=== PATIENT | female | born 1935 | race Caucasian/White ===

== ENCOUNTER 2023-05-13 10:51 | Emergency (ER) | payer OTHER, SELFPAY ==
[2023-05-13 10:53] VITALS: BP 129/68
[2023-05-13 12:10] VITALS: BMI 23.9
--- NOTE | 2023-05-13 14:20 | ED.GENMED ---
History of Present Illness
General
Chief Complaint: Fall
Source: patient
Exam Limitations: none
Time Seen by Provider: 05/13/23 11:22
Nursing documentation reviewed up to this point in time: agreed with
Travel History
Have you had any contact with someone who has COVID-19?: No
Do you have any symptoms of coronavirus? Fever > 100 degrees, chills, cough, shortness of breath, sore throat, loss of taste or smell, muscle aches, or headache?: No
History of Present Illness
History of Present Illness:
87-year-old female with past medical history of dementia, asthma, A-fib currently on Eliquis, CAD presenting to the emergency department today with concerns of a fall last night mainly hitting her right hip able to walk at the time but today noticed
discomfort when trying to ambulate. Denies hitting her head denies loss of consciousness denies additional concerns otherwise. No numbness or weakness.
Past History
Past History
ED Past Medical History: Arrthythmia (Paroxysmal atrial fibrillation), CAD, HTN, Hypothyroidism and Other (Asthma, hyperlipidemia, osteoarthritis, osteoporosis, hypothyroidism, dementia, pacemaker for sick sinus syndrome)
ED Past Surgical History: Orthopedic (Bilateral total knee replacement 4 days ago.)
Patient has exhibited threatening behavior?: No
PSI?: No
Social History
Tobacco: Non-smoker
Alcohol: None
Drug: None
Living: skilled nursing
Employment: Retired
Family History
Family History: Other (Noncontributory)
Review of Systems
Review of Systems
Allergies reviewed?: Yes
All Other Systems: ROS reviewed and negative except as documented in HPI and ROS
Phy Exam
Physical Exam
Physical Exam:
GENERAL: Alert , in no apparent distress
EYE: pupils equal and reactive
NECK: Supple, no significant adenopathy.
ENT: o/p clr, mmm.
CARDIAC: Regular rate and rhythm .
LUNGS: Clear breath sounds bilaterally, no acute respiratory distress, no wheezes/rales/rhonchi
ABDOMEN: Soft, without focal tenderness, no r/g, no cvat
NEUROLOGICAL: Alert and oriented, no focal neuro deficits
SKIN: Warm and dry, skin intact.
MUSCULOSKELETAL: No edema, well perfused.
PSYCH: Normal and appropriate interaction.
Course
Orders/Labs/Results
Orders:
Orders
05/13/23 11:47
CT Head W/o Iv Contrast Urgent
Comment:
Reason For Exam: fall on thinner
Hip, Right 2-3 Views [CR Hip - RT w/wo Pel 2-3 Vw*] Urgent
Comment:
Reason For Exam: right hip ppain and groin pain after fall
Include a pelvis x-ray?: Yes
05/13/23 12:42
CT Pelvis W/o Iv Contrast Urgent
Comment:
Reason For Exam: hip/groin pain after fall trouble walking
05/13/23 14:40
Case Management Consult ONCE
Case Management Consult: Discharge Planning
Pt Eval And Treat Urgent
Activity Level: Ambulate
Vital Signs
Initial and Last Documented VS:
Initial Vital Signs
Temp Pulse Resp BP Pulse Ox
98.4 F 64 16 129/68 98
05/13/23 10:53 05/13/23 10:53 05/13/23 10:53 05/13/23 10:53 05/13/23 10:53
Last Documented Vital Signs
Temp Pulse Resp BP Pulse Ox
98.4 F 64 16 129/68 98
05/13/23 10:53 05/13/23 10:53 05/13/23 10:53 05/13/23 10:53 05/13/23 10:53
MDM/Problems Addressed
MDM/Problems Addressed:
87-year-old female presenting to the emergency department today with concerns of mainly right-sided groin discomfort after a fall yesterday. Denies hitting her head is on Eliquis. CT scan of the head was obtained due to the patient's history of
taking Eliquis and poor memory. CT scan was negative. CT scan of the hip was also obtained that did not show any emergent fracture. On reassessment patient able to stand up and walk to the bathroom on her own power. The daughter is concerned
that she does live by herself and believes this would be unsafe requesting case management for appropriate home care.
*Critical Care Note
Total Time (30-74mins, 75-104mins- exclusive of procedures): Not Applicable
ED Attending Note
-
Portions of this chart may have been created with voice recognition software.� Occasional wrong word or��sound alike� substitutions may have occurred due to the inherent limitations of voice recognition software.
Discharge Plan
Departure
Patient Disposition: Home (Routine Discharge)
Date of Disposition: 05/13/23
Time of Disposition: 15:35
Patient with high blood pressure during this ER visit?: No
Condition: Good
Covid-19: Not Applicable
Discharge Problem:
Fall, Muscle strain
Instructions: Preventing falls in adults
Prescriptions:
No Action
atorvastatin 20 MG tablet
20 mg PO QPM
levothyroxine 50 MCG tablet
50 mcg PO DAILY
metoprolol succinate 25 MG tablet extended release 24 hr
12.5 mg PO DAILY
albuterol sulfate 1 PUFF HFA aerosol inhaler
2 puff inhalation R Q4HPRN PRN (Reason: sob)
Eliquis 5 MG tablet
5 mg PO BID Qty: 60 5RF
donepezil [Aricept] 5 mg Tablet
5 mg PO HS
loratadine [Claritin] 10 mg Tablet
10 mg PO DAILY
Flovent
2 puff inhalation BID
Referrals:
NONE,* [Family Provider] -
Activity Restrictions/Additional Instructions:
You came to the emergency department today after a fall. Here you had a reassuring imaging. You likely have soft tissue injury. This will improve over the next few days. Return to the emergency department any worsening, new or concerning
symptoms.
Interventions
Interventions:
*Risk Screen - Suicide Last Done: 05/13/23 12:10
*General Assessment Last Done: 05/13/23 12:10
*Neglect/Abuse Screening Last Done: 05/13/23 12:10
*ED COVID-19 Vaccine History Last Done: 05/13/23 10:53
ED-Musculoskeletal Assessment Last Done: 05/13/23 12:10
ED- Neurological Assessment Last Done: 05/13/23 12:10
ED-Skin Assessment Last Done: 05/13/23 12:10
--- NOTE | 2023-05-13 15:04 | CM ---
CM reviewed medical records. CM met with patient and daughter in room. Daughter stated that she feels that she would like patient to return home. Daughter confirmed that she will have 24 hour supervision at home. Patient has [employer] assistance twice a
week for 4 hours. Patient lives in an in law suite with daughter.
Daughter is requesting [facility]. Referral sent via [facility].
== END 2023-05-13 16:02 | disposition home or self-care (01) ==
LOC: EMR 10:51
PROVIDERS: EMERGENCY PHYSICIAN Emergency Medicine
DX: S76.011A Strain of muscle, fascia and tendon of right hip, initial encounter (principal); R10.30 Lower abdominal pain, unspecified; W18.30XA Fall on same level, unspecified, initial encounter; I48.0 Paroxysmal atrial fibrillation; I10 Essential (primary) hypertension; F03.90 Unspecified dementia, unspecified severity, without behavioral disturbance, psychotic disturbance, mood disturbance, and anxiety; I25.10 Atherosclerotic heart disease of native coronary artery without angina pectoris; E03.9 Hypothyroidism, unspecified; J45.909 Unspecified asthma, uncomplicated; E78.5 Hyperlipidemia, unspecified; M19.90 Unspecified osteoarthritis, unspecified site; F41.9 Anxiety disorder, unspecified; M81.0 Age-related osteoporosis without current pathological fracture; I49.5 Sick sinus syndrome; I25.2 Old myocardial infarction; Z79.01 Long term (current) use of anticoagulants; Z98.890 Other specified postprocedural states; Z96.653 Presence of artificial knee joint, bilateral; Z95.0 Presence of cardiac pacemaker; Z85.828 Personal history of other malignant neoplasm of skin; Z87.891 Personal history of nicotine dependence
CPT/HCPCS: 99284; 70450; 72192; 73502

== ENCOUNTER → 2024-10-06 14:17 | Outpatient (REF) | payer OTHER, SELFPAY | LOC: RAD 14:17 | PROVIDERS: ATTENDING PHYSICIAN Nurse Practitioner | DX: M25.512 Pain in left shoulder (principal) | CPT/HCPCS: 73030 ==

== ENCOUNTER 2025-02-18 17:05 | Emergency (ER) | payer OTHER, SELFPAY ==
[2025-02-18 17:08] VITALS: BP 167/80
[2025-02-18 17:55] LABS: Hematocrit 43.7 % (37.0-47.0); Hemoglobin 14.5 g/dL (12.0-16.0); Mean Corp Hgb Conc. 33.2 g/dL (33.0-37.0); Mean Corpuscular Volume 96.7 fL (81.0-99.0); Nucleated Red Blood Cells % 0 %; Platelet Count 181 10^3/uL (130-400); Red Cell Dist. Width 13.2 % (11.5-14.5)
[2025-02-18 18:14] LABS: ALT (SGPT) 20 U/L (0-35); AST (SGOT) 30 U/L (14-36); Albumin 4.3 g/dl (3.5-5.0); Alkaline Phosphatase 78 U/L (38-126); Blood Urea Nitrogen 16 mg/dl (7-17); Calcium 9.3 mg/dl (8.4-10.2); Carbon Dioxide 27 mmol/L (22-30); Chloride 104 mmol/L (98-107); Glucose 96 mg/dl (70-99); Potassium 4.2 mmol/L (3.5-5.1); Sodium 136 mmol/L (135-145); Total Protein 7.4 g/dl (6.3-8.2); eGFR > 60.00
[2025-02-18 18:16] LABS: Troponin I < 0.012 ng/ml
[2025-02-18 21:07] VITALS: BMI 25.8
[2025-02-18 21:10] VITALS: BP 103/62
[2025-02-18 22:00] VITALS: BP 112/62
[2025-02-18] MEDS: TYLENOL 650 MG PO (22:20)
[2025-02-18 22:28] LABS: Troponin I < 0.012 ng/ml
--- NOTE | 2025-02-18 22:39 | ED.GENMED ---
History of Present Illness
General
Chief Complaint: Fall
Source: patient and family
Exam Limitations: dementia
Time Seen by Provider: 02/18/25 21:12
Nursing documentation reviewed up to this point in time: agreed with
History of Present Illness
History of Present Illness:
Patient is an 89-year-old female with history atrial fibrillation on Eliquis, CAD, with pacemaker who presents to the emergency department via EMS after unwitnessed fall. Patient unable to contribute much to history of fall given dementia however
currently only reports mild pain in her right chest however denies any headache, neck pain, back pain, pain in upper or lower extremities. She unfortunately is a history of vascular dementia and does not remember the event surrounding the fall.
Patient's daughter states that patient lives in an in-law suite on their property with multiple ring cameras. Her daughter states that when she got home from work around 430 her mom was found on the ground in front of her door, inside. Based on
ring camera footage, the fall had just occurred and patient was not down on the floor for much time at all. They do not believe the patient ever lost consciousness. The patient had contacted life alert who then called 911 by the time patient's
daughter came inside.
Patient apparently was able to walk independently from the in-law suite out to the ambulance stretcher without discomfort.
Patient is anticoagulated on Eliquis for atrial fibrillation.
Past History
Past History
ED Past Medical History: Arrthythmia (Paroxysmal atrial fibrillation), CAD, HTN, Hypothyroidism and Other (Asthma, hyperlipidemia, osteoarthritis, osteoporosis, hypothyroidism, dementia, pacemaker for sick sinus syndrome)
ED Past Surgical History: Orthopedic (Bilateral total knee replacement 4 days ago.)
Patient has exhibited threatening behavior?: No
PSI?: No
Social History
Tobacco: Non-smoker
Alcohol: None
Drug: None
Living: intermediate
Employment: Retired
Family History
Family History: Other (Noncontributory)
Review of Systems
Review of Systems
Allergies reviewed?: Yes
All Other Systems: ROS reviewed and negative except as documented in HPI and ROS
Phy Exam
Physical Exam
Physical Exam:
Vitals: Patient's vital signs are stable. Afebrile
General: Patient is frail, in no distress
Skin: Warm and dry
Head: Normocephalic, atraumatic
Eyes: Sclera nonicteric. EOMs intact. Pupils equal round reactive light bilaterally
Throat: Protecting airway
Neck: Normal ROM, no cervical spine tenderness, no meningismus
Cardiac: Regular rate, irregular, no murmurs. Mild reproducible tenderness in right lateral chest wall without overlying ecchymoses or rash
Pulm: Normal respiratory effort. Lungs clear bilaterally
Abdomen: Abdomen soft and nontender
Extremities: No evidence of cyanosis or edema. Full range of motion of bilateral upper and lower extremities without pain. No deformities of extremities noted. Pulses intact
Neuro: AAOx2 to person and place, not time. No focal deficit
Psychiatric: Normal affect.
Course
Orders/Labs/Results
Orders:
Orders
02/18/25 17:13
Electrocardiogram (*1) Urgent
Reason for Study: Chest Pain
CT Cervical Spine W/o Iv Contr Urgent
Comment:
Reason For Exam: fall
CT Head W/o Iv Contrast Urgent
Comment:
Reason For Exam: fall on eliquis
EKG- Treatment ONCE
02/18/25 17:14
Ribs, Right 3 View W/PA Chest [CR Ribs-right 3 Vw W/pa Chest*] Urgent
Comment:
Reason For Exam: fall
02/18/25 17:23
Complete Blood Count/With Diff Urgent
Comprehensive Metabolic Panel Urgent
Troponin I Urgent
02/18/25 21:36
Electrocardiogram (*1) Urgent
Reason for Study: Chest Pain
EKG- Treatment ONCE
pacemaker [Interrogate Pacemaker- Treatment] ONCE
Acetaminophen [Tylenol] 650 mg PO NOW STA
02/18/25 21:57
Troponin I Urgent
Abnormal Lab Results
02/18/25
17:23
MCH 32.1 H pg
(27.0-31.0)
MPV 11.3 H fL
(7.4-10.4)
02/18/25 17:23
02/18/25 17:23
Vital Signs
Initial and Last Documented VS:
Initial Vital Signs
Temp Pulse Resp BP Pulse Ox
98.2 F 68 16 167/80 95
02/18/25 17:08 02/18/25 17:08 02/18/25 17:08 02/18/25 17:08 02/18/25 17:08
Last Documented Vital Signs
Temp Pulse Resp BP Pulse Ox
98.2 F 63 17 112/62 95
02/18/25 17:08 02/18/25 22:45 02/18/25 22:45 02/18/25 22:00 02/18/25 22:45
MDM/Problems Addressed
Differential Diagnosis Includes:
Not limited to: Acute dehydration, viral illness, cardiac arrhythmia chemical fall, rib contusion/rib fracture, brain bleed, etc.
MDM/Problems Addressed:
89-year-old female on Eliquis with pacemaker presenting after unwitnessed fall at home. Hx vascular dementia unable to remember events surrounding fall. Unknown head strike. Mild reproducible pain in right chest wall. Patient has stable vital signs.
On exam, she is alert without any evidence of head or neck trauma. There are no obvious deformities or injuries to upper or lower extremities. Cardio/pulmonary assessment unremarkable.
Prior to my evaluation, basic labs were sent without any clinically significant abnormalities. Troponin undetectable. CT head and cervical spine without acute abnormalities. Right rib series X-ray without evidence of displaced fracture.
Unclear if mechanical fall or syncope. Will trend troponin and interrogate pacemaker.
Update: Repeat troponin undetectable. Pacemaker shows no evidence of ventricular tachyarrythmia. She remains well appearing and in no distress. She�s been able to ambulate and bear weight in department. Ultimately � feel stable for discharge home.
She is closely monitored with family at home. Strict return precautions discussed. Family comfortable with this plan.
Chronic conditions affecting care:
Pacemaker, atrial fibrillation on Eliquis, etc.
Acute Exacerbation and/or Progression of Chronic Illness:
N/A
*Radiology
Radiology exam reviewed: radiology read reviewed
*Pulse Oximetry
SaO2: 95
Oxygen Mode of Delivery: Room air
Patient hypoxic: no
*EKG
Interpreted by ED Provider?: Yes
EKG Intrepretation Date: 02/19/25
Interpretation: abnormal
Comparison EKG: changes noted
Heart Rate: 64
Rate: normal
Rhythm: atrial flutter and ventricular paced
[place]: normal axis
Interval: normal QT interval
QRS Pattern: normal QRS
Ischemia: non-specific ST changes
*[employer]er Interpretation
Rate: normal
Interpretation: abnormal
Heart Rate: 64
Rhythm: ventricular paced
*Critical Care Note
Total Time (30-74mins, 75-104mins- exclusive of procedures): Not Applicable
ED Attending Note
-
Portions of this chart may have been created with voice recognition software.� Occasional wrong word or��sound alike� substitutions may have occurred due to the inherent limitations of voice recognition software.
Discharge Plan
Departure
Patient Disposition: Home (Routine Discharge)
Date of Disposition: 02/18/25
Time of Disposition: 23:01
Patient with high blood pressure during this ER visit?: Yes
Condition: Good
Discharge Problem:
Fall, Right-sided chest wall pain
Instructions: Preventing falls in adults, BLOOD PRESSURE
Prescriptions:
No Action
atorvastatin 20 MG tablet
20 mg PO QPM
levothyroxine 50 MCG tablet
50 mcg PO DAILY
metoprolol succinate 25 MG tablet extended release 24 hr
12.5 mg PO DAILY
albuterol sulfate 1 PUFF HFA aerosol inhaler
2 puff inhalation R Q4HPRN PRN (Reason: sob)
Eliquis 5 MG tablet
5 mg PO BID Qty: 60 5RF
donepezil [Aricept] 5 mg Tablet
5 mg PO HS
loratadine [Claritin] 10 mg Tablet
10 mg PO DAILY
Flovent
2 puff inhalation BID
Referrals:
Sulema Watson CRNP [Family Provider, Family Practice] - Follow up in 1 week
Activity Restrictions/Additional Instructions:
RETURN TO THE EMERGENCY DEPARTMENT WITH ANY SEVERE HEADACHE OR NECK PAIN, CHANGES IN MENTAL STATUS, INABILITY TO AMBULATE, CHEST PAIN OR SHORTNESS OF BREATH, WORSENING IN CURRENT SYMPTOMS, OR ANY OTHER CONCERNS
- Discussed your lab work and cardiac enzymes showed no acute abnormalities. Your imaging showed no evidence of acute traumatic injuries.
- Please stay well-hydrated. Use walker as needed for ambulation. Continue to take all medications as prescribed.
- For right sided chest wall pain�you can take Tylenol or apply lidocaine patches.
- Follow-up with primary care for further evaluation/management as needed
Monitor your symptoms closely and return to the emergency department with any acute worsening/new symptoms or any other concerns
Interventions
Interventions:
*Risk Screen - Suicide Last Done: 02/18/25 17:08
*General Assessment Last Done: 02/18/25 21:08
*Neglect/Abuse Screening Last Done: 02/18/25 17:08
*ED COVID-19 Vaccine History Last Done: 02/18/25 21:08
*ED Influenza Vaccine History Last Done: 02/18/25 21:08
[facility] Risk Assessment Tool Last Done: 02/18/25 21:07
*Nursing Disposition Last Done: 02/18/25 23:15
ED-Musculoskeletal Assessment Last Done: 02/18/25 21:31
ED- Neurological Assessment Last Done: 02/18/25 21:31
ED-Skin Assessment Last Done: 02/18/25 21:31
Discharge Date and Time
Discharge Date/Time: 02/18/25 23:28
Print Language: SAUDI ARABIAN
== END 2025-02-18 23:28 | disposition home or self-care (01) ==
LOC: EMR 17:05
PROVIDERS: Emergency Medicine; Physician Assistant; EMERGENCY PHYSICIAN Emergency Medicine; FAMILY PHYSICIAN Nurse Practitioner
DX: R07.89 Other chest pain (principal); W19.XXXA Unspecified fall, initial encounter; E03.9 Hypothyroidism, unspecified; E78.5 Hyperlipidemia, unspecified; F01.50 Vascular dementia, unspecified severity, without behavioral disturbance, psychotic disturbance, mood disturbance, and anxiety; I10 Essential (primary) hypertension; I25.10 Atherosclerotic heart disease of native coronary artery without angina pectoris; I48.0 Paroxysmal atrial fibrillation; Z79.01 Long term (current) use of anticoagulants; Z95.0 Presence of cardiac pacemaker
CPT/HCPCS: 99285; 70450; 71101; 72125; 80053; 84484; 85025; 93005